=== PATIENT | female | born 1995 | race American Indian/Alaskan Native ===

== ENCOUNTER 2021-01-13 05:36 | Emergency (ER) | payer SELFPAY ==
[2021-01-13] MEDS ORDERED: SODIUM CHLORIDE 0.9% 1000 ML 1,000 ML IV ONE (05:58)
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
[2021-01-13 06:12] LABS: Basophils % (Auto) 0.4 % (0.0-1.8); Eosinophils # (Auto) 0.1 K/mm3 (0.0-0.4); Eosinophils % (Auto) 0.6 % (0.0-4.3); Lymphocytes # (Auto) 2.7 K/mm3 (1.2-5.4); Lymphocytes % (Auto) 23.4 % (13.4-35.0); Mean Corpuscular HGB Conc 30 % (30-34); Monocytes # (Auto) 0.7 K/mm3 (0.0-0.8); Monocytes % (Auto) 6.5 % (0.0-7.3); Platelet Count 358 K/mm3 (140-440); Red Blood Count 4.83 M/mm3 (3.65-5.03); Red Cell Distribution Width 19.3 % (13.2-15.2)
[2021-01-13 06:13] LABS: Hematocrit 30.5 % (30.3-42.9); Mean Corpuscular Volume 63 fl (79-97)
[2021-01-13 06:23] LABS: INR 0.87 (0.87-1.13)
[2021-01-13 06:24] LABS: Partial Thromboplastin Time 24.9 Sec. (24.2-36.6)
[2021-01-13] MEDS ORDERED: MORPHINE 2 MG/1 ML INJ IV ONE ×2 (06:28→08:58)
[2021-01-13] MEDS ORDERED: ONDANSETRON 4 MG/2 ML INJ IV ONE (06:28)
[2021-01-13 06:29] LABS: Alanine Aminotransferase 10 units/L (7-56); Albumin 4.3 g/dL (3.9-5); BUN/Creatinine Ratio 11; Blood Urea Nitrogen 8 mg/dL (7-17); Calcium 9.1 mg/dL (8.4-10.2); Hemolysis Index 0
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
[2021-01-13] MEDS ORDERED: TETANUS,DIPH,PERTUSS(ACELL) VACCINE 0.5 ML SYRINGE IM ONE (06:36)
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
[2021-01-13] MEDS ORDERED: LIDOCAINE (1%) 10 MG/1 ML VIAL 20 ML MDV INFILTRATI ONE (06:51)
[2021-01-13] MEDS ORDERED: SODIUM CHLORIDE IRRI 500 ML 500 ML IR ONE (09:50)
[2021-01-13 12:01] VITALS: BP 139/78
== END 2021-01-13 12:00 | disposition home or self-care (01) ==
LOC: ED 05:36
DX: S01.81XA Laceration without foreign body of other part of head, initial encounter (principal); S31.139A Puncture wound of abdominal wall without foreign body, unspecified quadrant without penetration into peritoneal cavity, initial encounter; X58.XXXA Exposure to other specified factors, initial encounter; Y93.89 Activity, other specified; Y92.89 Other specified places as the place of occurrence of the external cause; Y99.8 Other external cause status
CPT/HCPCS: 12013; 36415; 70450; 71260; 72125; 74177; 80053; 85025; 85610; 85730; 86850; 86900; 86901; 90715; 96361; 96365; 96375; 99284; J0690; J2270; J2405; J3490; J7030; Q9967; 80320; Q0162; G0480